=== PATIENT | female | born 1945 | race Caucasian/White ===

== ENCOUNTER → 2017-01-24 | Outpatient (CLI) | payer BC ==
[2015-05-03 07:46] VITALS: BP 117/51
[~2017-01-24] MED LIST: ASPI-630 PO; ATOR20TA PO; AZIT250T6 PO; METH4TAB2 PO; Metoprolol Tartrate PO; PROAIR HFA8.5 GM IH; TICA90TA PO
--- NOTE | 2017-01-24 13:05 | KCIC ---
CT ABDOMEN/PELVIS Indication: Left lower quadrant pain Technique: Multiple contiguous axial images were obtained through the abdomen and pelvis. Coronal and sagittal reformations were created. Oral contrast was administered. PQRS STATEMENT One or more of the following in the visualized dose reduction techniques were utilized for this study: 1. Automatic exposure control, 2. Adjustment of the mA and/or kV according to patient size, 3. Use of iterative reconstruction technique ---- Findings: The heart size is normal. The lung bases are clear. Evaluation of the abdominal viscera is limited in the absence of IV contrast. The liver is normal in size and demonstrates a left lobe cyst measuring 1.8 cm. The gallbladder is nondistended. The pancreas, and adrenal glands are within normal limits. The kidneys are unremarkable. The abdominal aorta is normal in caliber. There is no abdominopelvic ascites. The bowel loops are normal in caliber. The appendix is normal. The urinary bladder is unremarkable. Degenerative changes are noted in the lumbar spine. Impression: No abdominopelvic ascites or inflammatory mass. Electronically signed by: Sang Aleman MD (01/24/2017 1:02 PM)
== END | disposition home or self-care (01) ==
LOC: KCIC CT 11:16
PROVIDERS: ATTEND Nurse Practitioner
DX: K76.89 Other specified diseases of liver (principal); M47.896 Other spondylosis, lumbar region
CPT/HCPCS: 74176

== ENCOUNTER → 2019-06-14 | Day surgery (SDC) | payer BC ==
[~2019-06-14] MED LIST changes: +ALBU2.5V8 IH; +CLOP75TA PO; +FAMO10TA26 PO; +HYDROmorphone 2 MG/ML VIAL IV PRN; +IV RINGERS,LACTATED 1000ML 1,000 ML IV SCH; +LIDOCAINE 1% PF 2 ML VIAL. ID PRN; +MORPHINE SULFATE 2 MG/ML VIAL. IV PRN; +ONDANSETRON PF 4 MG/2 ML VIAL. IV PRN; -PROAIR HFA8.5 GM IH; +PROCHLORPERAZINE 10 MG/2 ML VIAL. IV PRN; +PROPOFOL 20 ML IV ONE; +fentaNYL PF VIAL 100 MCG/2 ML VIAL IV PRN
--- NOTE | 2019-06-14 10:55 | PREOP HP ---
DATE OF SERVICE: 06/14/2019 DATE OF PROCEDURE: 06/14/2019. REQUESTING PHYSICIAN: Gilda Rachel MD. PRIMARY CARE PHYSICIAN: Gilda Rachel MD. REASON FOR PROCEDURE: Colorectal cancer screening and diarrhea. HISTORY OF PRESENT ILLNESS: This is a 73-year-old female who presents for colorectal cancer screening. On her prior colonoscopy, she was found to have microscopic colitis. She does admit to 3-4 stools a day. ALLERGIES: No known drug allergies. PAST MEDICAL HISTORY: [place], status post stent. SOCIAL HISTORY: Tobacco: She admits to tobacco and remote alcohol use. FAMILY MEDICAL HISTORY: Negative for colorectal cancer. REVIEW OF SYSTEMS: A 13-point review of systems was done. It is positive as per HPI and otherwise negative. PHYSICAL EXAMINATION: VITAL SIGNS: She is afebrile and her vital signs are stable. GENERAL: She is a well-developed, well-nourished female, in no apparent distress. HEENT: Oropharynx is clear. CARDIOVASCULAR: S1, S2. LUNGS: Clear. ABDOMEN: Normoactive bowel sounds, soft, nontender, nondistended. EXTREMITIES: No edema. NEUROLOGIC: Awake, alert, oriented x 3. ASSESSMENT AND PLAN: 1. Colorectal cancer screening. 2. History of collagenous colitis. 3. Diarrhea. 4. The risks and benefits of the colonoscopy including bleeding, perforation, non-diagnosis and sedation were explained and she has agreed to proceed. HUMPHREY TEMPLE MD DR: JANE/keren JOB#: [id number] / [id number]
[2019-06-14 11:00] VITALS: BP 136/61
--- NOTE | 2019-06-15 15:07 | PATHOLOGY ---
[facility] Accession Number: [id number] . 01 Material submitted: . PART A: ileum - TERMINAL ILEUM BIOPSY PART B: colon - RIGHT COLON BIOPSY. Modifiers: right PART C: colon - LEFT COLON BIOPSY. Modifiers: left PART D: colon - SIGMOID COLON POLYP. Modifiers: sigmoid . 01 Clinical history: . Pre-OP DX: CRCS Post-OP DX: Colitis/polyp . 01 Frozen section diagnosis: . . /QLM . 02 Diagnosis: A. Small intestine biopsy, terminal ileum: - No significant pathologic abnormalities. . B. Colon biopsies, right colon: - Collagenous colitis. . C. Colon biopsies, left colon: - Collagenous colitis. . D. Colon biopsy, sigmoid colon polyp: - Consistent with prominent mucosal fold, with collagenous colitis. . (JPM:mml; 06/15/2019) ON LICENSE OF [facility] 06/15/2019 1013 Local . 02 Comment: Sections of the terminal ileum biopsy reveal a segment of small intestine mucosa with focal mucosal-associated lymphoid tissue. There are no sprue-like changes or significant inflammatory changes. . Sections of the right colon and left colon biopsies appear similar and reveal segments of colonic mucosa showing a mild chronic active colitis without crypt architectural distortion. Collagen is deposited around the absorption capillary complex beneath the surface epithelium. The findings are supportive of the diagnosis of collagenous colitis. . Sections of the sigmoid colon biopsy reveal a small polypoid segment of colonic mucosa consistent with prominent mucosal fold. The mucosa also shows changes of collagenous colitis. . (JPM:mml; 06/15/2019) . 02 Electronically signed: . Ken Khanna MD, Pathologist NPI- [id number] . 01 Gross description: . A. Received in formalin labeled "Nevin, Maty, terminal ileum BX," is a single segment of ross soft tissue measuring 0.6 cm in maximum dimension. The specimen is entirely submitted in cassette A1. . B. Received in formalin labeled "Nevin, Maty, right colon BX," are 4 segments of ross soft tissue measuring 1.1 x 0.7 x 0.3 cm in aggregate dimensions and ranging from 0.3 to 0.5 cm in maximum dimension. The specimen is submitted entirely in cassette B1. . C. Received in formalin labeled "Nevin, Maty, left colon BX," are 6 segments of ross soft tissue measuring 1.5 x 1.1 x 0.3 cm in aggregate dimensions and ranging from 0.4 to 0.6 cm in maximum dimension. The specimen is submitted entirely in cassette C1. . D. Received in formalin labeled "Nevin, Maty, sigmoid colon polyp," is a single segment of ross soft tissue measuring 0.2 cm in maximum dimension. The specimen is entirely submitted in cassette D1. (TSD; 06/14/2019) TOB/TOB 06/14/2019 1632 Local . 02 Pathologist provided ICD-10: K52.831 . 02 CPT . 070710, 166581, 630457, [id number] Specimen Comment: A courtesy copy of this report has been sent to [phone], [phone] Specimen Comment: [id number] Specimen Comment: Report sent to and Performed at: 01 [facility] [address], [place] [id number] MD Noe Solis MD Phone: [phone] Performed at: 02 [facility] [address] [place], [place] [id number] MD Ken Khanna MD Phone: [phone]
== END ==
LOC: ENDOS 08:52
PROVIDERS: ATTEND Internal Medicine Gastroenterology
DX: R19.7 Diarrhea, unspecified (principal); K52.831 Collagenous colitis; K64.0 First degree hemorrhoids
CPT/HCPCS: 45380; 88305; J2704